=== PATIENT | male | born 1950 | race Hispanic/Latino ===

== ENCOUNTER 2018-02-18 06:17 | Day surgery (SDC) | payer OTHER ==
[2018-02-16 14:03] VITALS: BMI 31.1
[2018-02-18] MEDS ORDERED: Lidocaine 2% Inj (20ml) ONE (06:48)
[2018-02-18] MEDS ORDERED: Midazolam 2 MG/2 ML VIAL ONE ×2 (06:49→07:30)
[2018-02-18] MEDS ORDERED: Phenylephrine 10 mg/ml Inj ONE (06:49)
[2018-02-18] MEDS ORDERED: Nitroglycerin 50mg in D5W 0 MG/0 ML BOTTLE IV ONE (06:50)
[2018-02-18] MEDS ORDERED: Iohexol 350mgl/ml 50 ML ONE (06:50)
[2018-02-18] MEDS ORDERED: Iodixanol 320 MG/ML 100 ML BOTTLE IV ONE (06:50)
[2018-02-18] MEDS ORDERED: Iodixanol 320 MG/ML 200 ML BOTTLE IV ONE (06:50)
[2018-02-18] MEDS ORDERED: Sodium Chloride 0.9% 1,000 ML IV SCH (08:00)
[2018-02-18 08:21] VITALS: TEMP 97.6
[2018-02-18 08:52] VITALS: O2SAT 95
[2018-02-18 10:34] VITALS: RESP 18
[2018-02-18 10:35] VITALS: PULSE 60
--- NOTE | 2018-02-18 11:45 | CARDCATH ---
PROCEDURE DATE: 02/18/2018 PROCEDURES 1. Selective left to right coronary angiography. 2. Left ventriculography. 3. Right femoral arteriography. 4. Angio-Seal deployment. HISTORY: This is a 67-year-old man with a history of recent chest pain, exertional dyspnea and paroxysmal atrial fibrillation who underwent recent stress testing showing questionable apical ischemia, then a cardiac catheterization was advised. INDICATIONS: As above. FINDINGS HEMODYNAMICS: The aortic pressure is 130/70 with a left ventricular pressure of 130/16. CORONARY ANATOMY 1. The left mainstem was of moderate caliber and normal. 2. The left anterior descending artery was a moderate sized vessel. It gave rise to a moderate size diagonal branch. The vessel was fairly small, did not reach the apex. The diagonal branch had a 50% proximal stenosis and the mid LAD after the takeoff of the diagonal branch also had a 50% stenosis. 3. The left circumflex artery was of moderate size and had minimal irregularities. 4. The right coronary artery was large and dominant. This gave rise to multiple posterolateral branches and the PDA branch was fairly large and wrapped around the apex. The RCA had minimal disease. LEFT VENTRICULOGRAPHY: A hand injection was performed in the left ventricle revealing normal wall motion with an ejection fraction of 70%. There was no aortic valve gradient noted on catheter pullback. Mitral regurgitation was not assessed. RIGHT FEMORAL ARTERIOGRAPHY: A right femoral arteriogram was performed in the [place]ON[place] projection. This revealed no evidence of significant disease and appropriate level of arterial puncture. The puncture site was then closed with deployment of an Angio-Seal device. CONCLUSIONS 1. Moderate mid LAD and diagonal stenosis. 2. Normal LV systolic function. RECOMMENDATIONS: Given the above findings, continued medical therapy with aspirin and beta-bernabe is advised. Additional statin therapy should be considered given the presence of coronary artery disease. Alexis Mclaughlin MD cc: Figueroa Javier MD
[2018-02-18 12:07] VITALS: BP 170/81
== END 2018-02-18 11:49 | disposition home or self-care (01) ==
LOC: CATH 06:17
PROVIDERS: ATTEND Internal Medicine Cardiovascular Disease
DX: I25.10 Atherosclerotic heart disease of native coronary artery without angina pectoris (principal); I48.0 Paroxysmal atrial fibrillation
CPT/HCPCS: 36415; 86850; 86900; 93458; 99152; C1760; C1769; C2629; J1644; J2250; J3010; J7040 ×2; Q9966